=== PATIENT | female | born 1950 | race Caucasian/White ===

== ENCOUNTER → 2023-04-26 06:55 | Outpatient (REF) | payer MEDICARE, BC, SELFPAY | LOC: RAD 06:55 | PROVIDERS: ATTENDING PHYSICIAN Specialist; FAMILY PHYSICIAN Physician Assistant Medical | DX: R51.9 Headache, unspecified (principal) | CPT/HCPCS: 70450 ==

== ENCOUNTER → 2023-05-27 12:56 | Outpatient (REF) | payer MEDICARE, BC, SELFPAY | LOC: WDC 12:56 | PROVIDERS: ATTENDING PHYSICIAN Obstetrics & Gynecology Gynecology; FAMILY PHYSICIAN Physician Assistant Medical | DX: Z12.31 Encounter for screening mammogram for malignant neoplasm of breast (principal) | CPT/HCPCS: 77063; 77067 ==

== ENCOUNTER → 2023-09-29 09:58 | Outpatient (REF) | payer MEDICARE, BC, SELFPAY | LOC: RST 09:58 | PROVIDERS: ATTENDING PHYSICIAN Internal Medicine Gastroenterology; FAMILY PHYSICIAN Physician Assistant Medical | DX: T17.320A Food in larynx causing asphyxiation, initial encounter (principal); K86.2 Cyst of pancreas; R13.10 Dysphagia, unspecified | CPT/HCPCS: 74230; 92611 ==

== ENCOUNTER → 2023-10-08 06:06 | Day surgery (SDC) | payer MEDICARE, BC, SELFPAY | LOC: GI 06:06 | PROVIDERS: ATTENDING PHYSICIAN Internal Medicine Gastroenterology | DX: D12.0 Benign neoplasm of cecum (principal); D12.2 Benign neoplasm of ascending colon; D12.3 Benign neoplasm of transverse colon; K63.5 Polyp of colon; K57.30 Diverticulosis of large intestine without perforation or abscess without bleeding; K44.9 Diaphragmatic hernia without obstruction or gangrene; R13.10 Dysphagia, unspecified; Z86.010 Personal history of colon polyps | CPT/HCPCS: 45385; 45380; 45381; 43239; 88305 ==

== ENCOUNTER → 2023-10-25 18:24 | Outpatient (REF) | payer MEDICARE, BC, SELFPAY | LOC: MRI 18:24 | PROVIDERS: ATTENDING PHYSICIAN Internal Medicine Gastroenterology; FAMILY PHYSICIAN Physician Assistant Medical | DX: K86.2 Cyst of pancreas (principal) | CPT/HCPCS: 74183; A9575 ==

== ENCOUNTER → 2024-01-26 18:22 | Outpatient (REF) | payer MEDICARE, BC, SELFPAY | LOC: PAVMRI 18:22 | PROVIDERS: ATTENDING PHYSICIAN Student in an Organized Health Care Education/Training Program; FAMILY PHYSICIAN Physician Assistant Medical | DX: M25.562 Pain in left knee (principal); M17.12 Unilateral primary osteoarthritis, left knee | CPT/HCPCS: 73721 ==

== ENCOUNTER 2024-03-20 12:38 | Emergency (ER) | payer MEDICARE, BC, SELFPAY ==
[2024-03-20 12:43] VITALS: BP 139/90
--- NOTE | 2024-03-20 12:58 | ED.GENMED ---
History of Present Illness
General
Chief Complaint: Chest Pain
Time Seen by Provider: 03/20/24 15:52
Past History
Past History
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 GERD, diverticulosis, right total hip replacement, ankle ORIF, hyperlipidemia)
ED Past Surgical History: Orthopedic (Total hip replacement) and Other (Diagnostic laparoscopy )
Social History
Tobacco: Non-smoker
Alcohol: None
Personal:
Living: with family
Family History
Family History: Cancer (Colon carcinoma ); Negative Diabetes, Hypertension, Early CAD or Asthma
Course
Orders/Labs/Results
Orders:
Orders
03/20/24 12:39
Electrocardiogram (*1) Urgent
Reason for Study: Chest Pain
EKG- Treatment ONCE
03/20/24 12:51
Complete Blood Count/With Diff Urgent
Comprehensive Metabolic Panel Urgent
Troponin I Urgent
03/20/24 16:04
CT Angio Chest/Abd W/Wo Iv Contrast [CT Chest/abd Angio W/wo Iv Con] Urgent
Comment:
Reason For Exam: chest pain radiating to back and arms
Troponin I Urgent
Abnormal Lab Results
03/20/24
12:51
MCHC 32.2 L g/dL
(33.0-37.0)
Lymphocytes % 19.4 L %
(20.5-51.1)
Carbon Dioxide 31 H mmol/L
(22-30)
03/20/24 12:51
03/20/24 12:51
Vital Signs
Initial and Last Documented VS:
Initial Vital Signs
Temp Pulse Resp BP Pulse Ox
98.7 F 81 18 139/90 98
03/20/24 12:43 03/20/24 12:43 03/20/24 12:43 03/20/24 12:43 03/20/24 12:43
Last Documented Vital Signs
Temp Pulse Resp BP Pulse Ox
98.7 F 69 16 147/85 98
03/20/24 12:43 03/20/24 14:47 03/20/24 14:47 03/20/24 14:47 03/20/24 14:47
ED Attending Note
-
Portions of this chart may have been created with voice recognition software.� Occasional wrong word or��sound alike� substitutions may have occurred due to the inherent limitations of voice recognition software.
Discharge Plan
Departure
Prescriptions:
No Action
biotin 10 MG tablet
10 mg PO DAILY
atorvastatin 20 MG tablet
20 mg PO QPM
calcium carbonate [Oyster Shell Calcium 500] 500 MG tablet
500 mg PO DAILY
ibuprofen 200 MG tablet
200 mg PO Q4HPRN PRN (Reason: MILD PAIN)
multivitamin with minerals [Hair,Skin and Nails] 1 EACH tablet
1 tab PO DAILY
B-complex with vitamin C 1 CAPLET tablet
1 cap PO DAILY
coenzyme [id number] E 1 CAP capsule
1 cap PO DAILY
cholecalciferol (vitamin D3) 2,000 UNITS tablet
5,000 units PO DAILY
gwpsb-[id number]-epa-fish oil-D3 [[place]-3 Plus Vitamin D3] 1 EACH capsule,delayed release(DR/EC)
1 cap PO DAILY
turmeric 400 MG capsule
400 mg PO DAILY
Brioschi
1 tab PO DAILYPRN PRN (Reason: GERD)
sennosides [Perdiem Overnight Relief] 15 MG tablet
15 mg PO DAILY
amoxicillin-pot clavulanate 1 TABLET tablet
1 tab PO Q12 Qty: 13 0RF
Referrals:
Rolly Arevalo PA-C [Family Provider] -
Interventions
Interventions:
*Risk Screen - Suicide Last Done: 03/20/24 12:43
*General Assessment Last Done: 12/30/24 12:43
*Neglect/Abuse Screening Last Done: 03/20/24 12:43
*ED COVID-19 Vaccine History Last Done: 03/20/24 15:44
ED- Cardiac Assessment Last Done: 03/20/24 15:44
Discharge Date and Time
Print Language: SETSWANA
[2024-03-20 13:14] LABS: % Basophils 0.4 % (0-2); % Eosinophils 0.8 % (0-6); % Immature Granulocytes 0.3 % (0-0.5); % Lymphocytes 19.4 % (20.5-51.1); % Monocytes 6.4 % (1.7-9.3); % Neutrophils 72.7 % (42.2-75.2); Absolute Eosinophils 0.1 10^3/uL (0-0.7); Absolute Lymphocytes 1.5 10^3/uL (1.2-3.4); Absolute Monocytes 0.5 10^3/uL (0.1-0.6); Absolute Neutrophils 5.7 10^3/uL (1.4-6.5); Hematocrit 42.2 % (37.0-47.0); Hemoglobin 13.6 g/dL (12.0-16.0); Mean Corp Hgb Conc. 32.2 g/dL (33.0-37.0); Mean Corpuscular Hgb 28.9 pg (27.0-31.0); Mean Corpuscular Volume 89.6 fL (81.0-99.0); Mean Platelet Volume 9.2 fL (7.4-10.4); Nucleated Red Blood Cells % 0 %; Platelet Count 211 10^3/uL (130-400); Red Blood Cell Count 4.71 10^6/uL (4.20-5.40); White Blood Cell Count 7.8 10^3/uL (4.8-10.8)
[2024-03-20 13:25] LABS: ALT (SGPT) 22 U/L (0-35); AST (SGOT) 33 U/L (14-36); Albumin 4.4 g/dl (3.5-5.0); Alkaline Phosphatase 64 U/L (38-126); Blood Urea Nitrogen 16 mg/dl (7-17); Calcium 9.7 mg/dl (8.4-10.2); Carbon Dioxide 31 mmol/L (22-30); Chloride 101 mmol/L (98-107); Glucose 97 mg/dl (70-99); Potassium 3.8 mmol/L (3.5-5.1); Sodium 139 mmol/L (135-145); Total Bilirubin 0.3 mg/dl (0.2-1.3); Total Protein 7.3 g/dl (6.3-8.2); eGFR > 60.00
[2024-03-20 13:35] LABS: Troponin I < 0.012 ng/ml
[2024-03-20 14:47] VITALS: BP 147/85
[2024-03-20 16:00] VITALS: BP 149/87
--- NOTE | 2024-03-20 16:06 | ED.GENMED ---
History of Present Illness
General
Chief Complaint: Chest Pain
Source: patient and spouse
Time Seen by Provider: 03/20/24 15:52
History of Present Illness
History of Present Illness:
73-year-old female presents to the emergency room for evaluation of chest discomfort. Patient states that around 7:00 last night she began having a discomfort in her chest which she describes as a heaviness or fullness that radiated down her arms
and into her back also up into her jaw. Symptoms were fairly significant at onset and have seemingly gradually decreased in intensity until now. The discomfort is still present but not completely gone. Does seem to wax and wane in intensity
although again has not gone away completely. She feels like it is worse when she bends over. No fever, chills. She did have some nausea associate with the discomfort last evening. Exertion does not seem to make it worse. Patient has a history
of aortic stenosis.
Past History
Past History
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 GERD, diverticulosis, right total hip replacement, ankle ORIF, hyperlipidemia)
ED Past Surgical History: Orthopedic (Total hip replacement) and Other (Diagnostic laparoscopy )
Social History
Tobacco: Non-smoker
Alcohol: None
Personal:
Living: with family
Family History
Family History: Cancer (Colon carcinoma ); Negative Diabetes, Hypertension, Early CAD or Asthma
Phy Exam
Physical Exam
Physical Exam:
General: Awake, Alert, Oriented X3. No acute distress.
Vitals: unremarkable
Head: Atraumatic
Eyes: Pupils equal, EOMI
Throat: Airway intact, no exudates
Neck: Trachea midline
Lungs: Clear and equal b/l
Heart: Regular rate, 3/6 systolic murmurs
Abd: Soft, Nontender, No pulsatile mass
Neuro: Nonfocal
Skin: Warm, dry, no rash
Extremities: pulses equal b/l, no edema
Scores
Heart Score for Chest Pain Patients
STEMI patient?: No
History: Moderately Suspicious
ECG: Nonspecific Repolarization
Age: >/= 65 years
Risk Factors: 1 or 2 Risk Factors
Troponin: </= Normal Limit
Heart Score for Chest Pain Patients: 5
Heart Score Risk: 20.3% MACE over next 6 weeks
Course
Orders/Labs/Results
Orders:
Orders
03/20/24 12:39
Electrocardiogram (*1) Urgent
Reason for Study: Chest Pain
EKG- Treatment ONCE
03/20/24 12:51
Complete Blood Count/With Diff Urgent
Comprehensive Metabolic Panel Urgent
Troponin I Urgent
03/20/24 16:04
CT Angio Chest/Abd W/Wo Iv Contrast [CT Chest/abd Angio W/wo Iv Con] Urgent
Comment:
Reason For Exam: chest pain radiating to back and arms
03/20/24 16:26
Troponin I Urgent
Abnormal Lab Results
03/20/24
12:51
MCHC 32.2 L g/dL
(33.0-37.0)
Lymphocytes % 19.4 L %
(20.5-51.1)
Carbon Dioxide 31 H mmol/L
(22-30)
03/20/24 12:51
03/20/24 12:51
Vital Signs
Initial and Last Documented VS:
Initial Vital Signs
Temp Pulse Resp BP Pulse Ox
98.7 F 81 18 139/90 98
03/20/24 12:43 03/20/24 12:43 03/20/24 12:43 03/20/24 12:43 03/20/24 12:43
Last Documented Vital Signs
Temp Pulse Resp BP Pulse Ox
98.7 F 71 19 148/84 96
03/20/24 12:43 03/20/24 19:00 03/20/24 19:00 03/20/24 19:00 03/20/24 19:00
MDM/Problems Addressed
Differential Diagnosis Includes:
Angina, thoracic dissection, symptomatic aortic stenosis
MDM/Problems Addressed:
Patient presents with chest discomfort that was severe last night and has improved throughout the course of the last night and today. Troponin negative x 2. CT shows no dissection. Suspect either musculoskeletal pain or abstaining from stenosis.
Patient put on the chest pain hotline. Instructed to return if she is feeling worse.
*Radiology
Radiology exam reviewed: radiology read reviewed
*Pulse Oximetry
Patient hypoxic: no
*EKG
Interpreted by ED Provider?: Yes
Interpretation: normal
Heart Rate: 78
Rate: normal
Rhythm: sinus
[place]: normal axis
Interval: normal interval
QRS Pattern: normal QRS
Ischemia: no ischemia
*Level Vial Setter Interpretation
Rate: normal
Interpretation: normal
Rhythm: sinus
*Critical Care Note
Total Time (30-74mins, 75-104mins- exclusive of procedures): Not Applicable
ED Attending Note
-
Portions of this chart may have been created with voice recognition software.� Occasional wrong word or��sound alike� substitutions may have occurred due to the inherent limitations of voice recognition software.
Discharge Plan
Departure
Patient Disposition: Home (Routine Discharge)
Date of Disposition: 03/20/24
Time of Disposition: 18:39
Patient with high blood pressure during this ER visit?: No
Condition: Good
Discharge Problem:
Chest pain
Instructions: Chest Pain CBC Follow Up, BLOOD PRESSURE
Prescriptions:
No Action
biotin 10 MG tablet
10 mg PO DAILY
atorvastatin 20 MG tablet
20 mg PO QPM
calcium carbonate [Oyster Shell Calcium 500] 500 MG tablet
500 mg PO DAILY
ibuprofen 200 MG tablet
200 mg PO Q4HPRN PRN (Reason: MILD PAIN)
multivitamin with minerals [Hair,Skin and Nails] 1 EACH tablet
1 tab PO DAILY
B-complex with vitamin C 1 CAPLET tablet
1 cap PO DAILY
coenzyme [id number] E 1 CAP capsule
1 cap PO DAILY
cholecalciferol (vitamin D3) 2,000 UNITS tablet
5,000 units PO DAILY
idnmn-3q-ita-epa-fish oil-D3 [[place]-3 Plus Vitamin D3] 1 EACH capsule,delayed release(DR/EC)
1 cap PO DAILY
turmeric 400 MG capsule
400 mg PO DAILY
Brioschi
1 tab PO DAILYPRN PRN (Reason: GERD)
sennosides [Perdiem Overnight Relief] 15 MG tablet
15 mg PO DAILY
amoxicillin-pot clavulanate 1 TABLET tablet
1 tab PO Q12 Qty: 13 0RF
Referrals:
Rolly Arevalo PA-C [Family Provider] -
Adrian Borden MD [Active] -
Interventions
Interventions:
*Risk Screen - Suicide Last Done: 03/20/24 12:43
*General Assessment Last Done: 03/20/24 12:43
*Neglect/Abuse Screening Last Done: 03/20/24 12:43
*ED COVID-19 Vaccine History Last Done: 03/20/24 15:44
*Nursing Disposition Last Done: 03/20/24 19:11
ED- Cardiac Assessment Last Done: 03/20/24 15:44
Discharge Date and Time
Discharge Date/Time: 03/20/24 19:21
Print Language: GUYANESE
[2024-03-20 16:58] LABS: Troponin I < 0.012 ng/ml
[2024-03-20 17:00] VITALS: BP 168/93
[2024-03-20 18:21] VITALS: BP 155/79
[2024-03-20 19:00] VITALS: BP 148/84
== END 2024-03-20 19:21 | disposition home or self-care (01) ==
LOC: EMR 12:38
PROVIDERS: Emergency Medicine; EMERGENCY PHYSICIAN Emergency Medicine; FAMILY PHYSICIAN Physician Assistant Medical
DX: R07.89 Other chest pain (principal); K21.9 Gastro-esophageal reflux disease without esophagitis; E78.5 Hyperlipidemia, unspecified
CPT/HCPCS: 99284; 71275; 74175; 80053; 84484; 85025; 93005; Q9967

== ENCOUNTER → 2024-04-18 07:55 | Outpatient (REF) | payer MEDICARE, BC, SELFPAY | LOC: HWRCS 07:55 | PROVIDERS: ATTENDING PHYSICIAN Internal Medicine Cardiovascular Disease; FAMILY PHYSICIAN Physician Assistant Medical | DX: R07.89 Other chest pain (principal); R06.09 Other forms of dyspnea; R01.1 Cardiac murmur, unspecified; E78.2 Mixed hyperlipidemia; R06.83 Snoring | CPT/HCPCS: 78452; 93017; A9500 ==

== ENCOUNTER → 2024-05-29 14:02 | Outpatient (REF) | payer MEDICARE, BC, SELFPAY | LOC: WDC 14:02 | PROVIDERS: ATTENDING PHYSICIAN Physician Assistant Medical | DX: Z12.31 Encounter for screening mammogram for malignant neoplasm of breast (principal) | CPT/HCPCS: 77063; 77067 ==

== ENCOUNTER → 2024-06-01 13:49 | Outpatient (REF) | payer MEDICARE, BC, SELFPAY | LOC: RCS 13:49 | PROVIDERS: ATTENDING PHYSICIAN Nurse Practitioner; FAMILY PHYSICIAN Physician Assistant Medical | DX: I35.0 Nonrheumatic aortic (valve) stenosis (principal) | CPT/HCPCS: 93306 ==

== ENCOUNTER → 2025-02-23 08:54 | Outpatient (REF) | payer MEDICARE, BC, SELFPAY | LOC: MRI 3T 08:54 | PROVIDERS: ATTENDING PHYSICIAN Specialist; FAMILY PHYSICIAN Physician Assistant Medical | DX: R42 Dizziness and giddiness (principal) | CPT/HCPCS: 70544; 70547; 70553; A9575 ==